=== PATIENT | male | born 1965 | race American Indian/Alaskan Native ===

== ENCOUNTER 2018-08-27 11:30 | Emergency (ER) | payer MEDICARE ==
[2018-08-27 11:35] VITALS: BP 115/67
[2018-08-27] MEDS ORDERED: DECADRON IM ONE (12:01)
[2018-08-27] MEDS ORDERED: TORADOL IM ONE (12:01)
--- NOTE | 2018-08-27 12:02 | Emergency Department Report ---
ED Neck Pain HPI Chief Complaint: Neck Pain/Injury Stated Complaint: (L) SIDE NECK PAIN Duration: 1 week Neck Pain Location: Posterior Neck Severity: moderate Mechanism: Awkward Position Symptoms: Yes Pain with Movement, Yes Previous History, No Radiation to Left Upper Ext, No Radiation to Right Upper Ext, No Numbness, No Weakness Other History: This is a 53-year-old male who presents with neck pain for one week. Patient states he pushed off. With his left arm and felt something tighten to posterior neck. Patient states he felt like a pinched nerve occured which he had issues with in the past. He use to muscle relaxers and incidents with minimal improvement of symptoms. Patient reports pain as 7 out of 10 on pain scale worse with movement. He also reports decreased range of motion. He denies swelling, numbness or tingling, fever, warmth, paresthesias. ED Review of Systems ROS: Stated complaint: (L) SIDE NECK PAIN Other details as noted in HPI Constitutional: denies: chills, fever Respiratory: denies: cough, shortness of breath, wheezing Cardiovascular: denies: chest pain, palpitations Gastrointestinal: denies: abdominal pain, nausea, diarrhea Musculoskeletal: arthralgia (posterior neck pain). denies: back pain, joint swelling Neurological: denies: headache, weakness, paresthesias Psychiatric: denies: anxiety, depression ED Past Medical Hx - Past Medical History Previous Medical History?: No - Surgical History Past Surgical History?: No - Social History Smoking Status: Current Every Day Smoker Substance Use Type: None - Medications Home Medications: Home Medications Medication Instructions Recorded Confirmed Last Taken Type Methocarbamol [Robaxin TAB] 750 mg PO Q8H PRN #15 tablet 08/27/18 Unknown Rx Naproxen [Naprosyn] 500 mg PO TID PRN #20 tablet 08/27/18 Unknown Rx methylPREDNISolone [Medrol] 4 mg PO DAILY #1 tab.ds.pk 08/27/18 Unknown Rx Neck Pain Exam - Exam General: Vital signs noted. No distress. Alert and acting appropriately. HEENT: No Facial Pain, No Scalp Tenderness, No Contusion, No Abrasion, No Laceration Neck Pain: Yes Midline Tenderness (C3-C5), Yes Right Trapezius Tenderness, Yes Pain with Rotation Right, Yes Pain with Rotation Left, Yes Pain with Extension, Yes Pain with Flexion, Yes pain with R Lateral Flexion, No Right Paraspinal Tenderness, No Left Paraspinal Tenderness, No Left Trapezius Tenderness, No Pain with L Lateral Flexion Chest: Yes Clear Lung Sounds, No Pain with Respirations Heart: Yes Regular, No Murmur Back: No Thoracic Tenderness, No Lumbar Tenderness Neuro: No Numbness, No Weakness, No Normal Reflexes, No Radicular Deficits ED Course Vital Signs 08/27/18 11:33 Temperature 98.6 F Pulse Rate 85 Respiratory 16 Rate Blood Pressure 115/67 O2 Sat by Pulse 97 Oximetry ED Medical Decision Making - Radiology Data Radiology results: report reviewed FINAL REPORT EXAM: CT CERVICAL SPINE WO CON HISTORY: neck pain TECHNIQUE: CT of the Cervical Spine without IV contrast. Coronal and sagittal reformatted images were provided. PRIORS: None currently available. FINDINGS: There is no fracture. There is no subluxation. There is no atlantooccipital dislocation. C1-C2: Aiyz-ln-xmskcszp arthrosis. No significant subluxation or canal narrowing. C2-C3: Central protrusion measures 2.5 mm. No significant canal or foraminal narrowing. C3-C4: Left asymmetrical bulge. Mild spinal canal and ignu-ci-cplhqtvw left foraminal narrowing. Right foramina is intact. C4-C5: Symmetrical bulge. Bilateral uncovertebral arthropathy. Mild spinal canal and moderate to severe bilateral foraminal narrowing. C5-C6: Right asymmetrical bulge. Right uncovertebral arthropathy. Moderate to severe right foraminal narrowing. Moderate left foraminal narrowing. Mild to moderate spinal canal narrowing. C6-C7: Symmetrical bulge. Bilateral uncovertebral arthropathy. Gkfk-dz-vfkllsmb spinal canal narrowing. Moderate to severe bilateral foraminal narrowing. C7-T1: Left asymmetrical bulge. Mild to moderate bilateral foraminal narrowing. Mild spinal canal narrowing. Prevertebral soft tissue structures are unremarkable. Minimal emphysematous changes in both apical lungs. Heterogenous thyroid gland. A distinct nodules not evident; however, nodules are not excluded. IMPRESSION: Discogenic disease with the most notable levels at C4-C7. - Medical Decision Making Patient was examined by me. Vitals are normal and patient is in no acute distress. Given dexamethasone 8 mg IM and toradol 30 mg IM once while in ER. Obtained a CT of neck. Ct dictated by radiologist and report reviewed by myself. Discogenic disease with the most notable levels at C4-C7. Degenerative disc disease Patient informed of results. Start medrol dose pack, robaxin, and naproxen. Plan discussed with patient to discharge home and treat outpatient. He agrees with ER plan. Patient discharged home in stable condition. Follow up with PCP in 2-3 days. Critical care attestation.: If time is entered above; I have spent that time in minutes in the direct care of this critically ill patient, excluding procedure time. ED Disposition Clinical Impression: Neck pain, acute, Degenerative disc disease, cervical Disposition: TO HOME OR SELFCARE Is pt being admited?: No Does the pt Need Aspirin: No Condition: Stable Instructions: Self-Care Measures with a Chronic Disease (ED), Degenerative Disc Disease (ED) Additional Instructions: Rest Use ice or heat on affected area for 20 minutes and off for 2 hours. Take pain medication as needed for pain. Don't drive or operate heavy machinery while taking muscle relaxers because they may cause drowsiness. Follow up with Primary Care Provider in 2-3 days. Prescriptions: Methocarbamol [Robaxin TAB] 750 mg PO Q8H PRN #15 tablet PRN Reason: Muscle Spasm methylPREDNISolone [Medrol] 4 mg PO DAILY #1 tab.ds.pk Naproxen [Naprosyn] 500 mg PO TID PRN #20 tablet PRN Reason: Pain , Severe (7-10) Referrals: PRIMO CESPEDES MD [Primary Care Provider] - 3-5 Days BEA APODACA MD [Staff Physician] - 3-5 Days [facility] [Provider Group] - 3-5 Days Time of Disposition: 13:12
--- NOTE | 2018-08-27 13:05 | Cat Scan Report ---
FINAL REPORT EXAM: CT CERVICAL SPINE WO CON HISTORY: neck pain TECHNIQUE: CT of the Cervical Spine without IV contrast. Coronal and sagittal reformatted images karan mallory provided. PRIORS: None currently available. FINDINGS: There is no fracture. There is no subluxation. There is no atlantooccipital dislocation. C1-C2: Jsey-dz-fgjljgta arthrosis. No significant subluxation or canal narrowing. C2-C3: Central protrusion measures 2.5 mm. No significant canal or foraminal narrowing. C3-C4: Left asymmetrical bulge. Mild spinal canal and fifj-py-vahqhnkz left foraminal narrowing. Righ t foramina is intact. C4-C5: Symmetrical bulge. Bilateral uncovertebral arthropathy. Mild spinal canal and moderate to lisa re bilateral foraminal narrowing. C5-C6: Right asymmetrical bulge. Right uncovertebral arthropathy. Moderate to severe right foraminal narrowing. Moderate left foraminal narrowing. Mild to moderate spinal canal narrowing. C6-C7: Symmetrical bulge. Bilateral uncovertebral arthropathy. Mclm-mx-pexojawy spinal canal narrowin g. Moderate to severe bilateral foraminal narrowing. C7-T1: Left asymmetrical bulge. Mild to moderate bilateral foraminal narrowing. Mild spinal canal chidi rowing. Prevertebral soft tissue structures are unremarkable. Minimal emphysematous changes in both apical lungs. Heterogenous thyroid gland. A distinct nodules not evident; however, nodules are not excluded. IMPRESSION: Discogenic disease with the most notable levels at C4-C7.
== END 2018-08-27 13:22 | disposition home or self-care (01) ==
LOC: ED 11:30
DX: M50.320 Other cervical disc degeneration, mid-cervical region, unspecified level (principal); F17.200 Nicotine dependence, unspecified, uncomplicated
CPT/HCPCS: 72125; 96372; 99283; J1100; J1885